=== PATIENT | male | born 1990 | race Asian ===

== ENCOUNTER 2018-08-19 23:54 | Emergency (ER) | payer OTHER ==
[2018-08-20 00:30] VITALS: BP 135/79; PULSE 84; TEMP 98.3; BMI 33.9
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
[2018-08-20] MEDS ORDERED: SODIUM CHLORIDE 0.9% 500 ML INFUS.BAG IV ONE (01:01)
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
== END 2018-08-20 06:14 | disposition home or self-care (01) ==
LOC: JER 23:54
DX: F10.120 Alcohol abuse with intoxication, uncomplicated (principal); Y08.89XA Assault by other specified means, initial encounter; Y93.89 Activity, other specified; Y92.480 Sidewalk as the place of occurrence of the external cause; Y99.8 Other external cause status; Y07.6 Multiple perpetrators of maltreatment and neglect
CPT/HCPCS: 70450-TC; 72125-TC; 99282-25

== ENCOUNTER 2019-02-21 22:30 | Emergency (ER) | payer OTHER ==
[2019-02-21 22:40] VITALS: TEMP 98.1; BMI 32.5
--- NOTE | 2019-02-21 22:52 | PDOC ---
Attending Attestation - Resident Resident Name: Luan Valdovinosmadyson - ED Attending Attestation I have performed the following: I have examined & evaluated the patient, The case was reviewed & discussed with the resident, I agree w/resident's findings & plan, Exceptions are as noted - HPI HPI: 02/21/19 22:50 this 28 yo male admits to heavy alcohol use and now states he has chest pain - Physicial Exam PE: 02/22/19 00:06 28 wnwd male who is inebriated and has tachycardia head ncat cvs tachycardia neuro intoxicated but conversant,moving all limbs and answering questions,motor strength 5/5 b/l 02/22/19 00:06 02/22/19 00:42 - Medical Decision Making 02/22/19 00:04 past surgical history :appendectomy. PCP Dr. Neyda Blanco Social history he uses tobacco and binge drinks. He admits to drinking whiskey and beer today 02/22/19 00:43 ekg tachycardai @ 113 bpm 02/22/19 01:22 cbc has no anemia or leukocytosis chemistries show slight elevation in creatinine (1.4) ,glu 125 tropinin is negative 02/22/19 01:24 02/22/19 01:24 etoh 233 02/22/19 01:56 pt needs IV fluid, repeat troponin
[2019-02-21] MEDS ORDERED: FOLIC ACID INJECTION - 1 MG, THIAMINE HCL 100 MG, MULTIVIT INJECTION ADULT 10 ML in SOD... IVPB ONE (23:07)
--- NOTE | 2019-02-21 23:10 | PDOC ---
History of Present Illness - General Chief Complaint: Alcohol intoxication Stated Complaint: CHEST PAIN Time Seen by Provider: 02/21/19 22:43 - History of Present Illness Initial Comments: 02/21/19 23:10 28 y/o M hx of HTN, asthma and alcohol use presenting to the ED intoxicated and complaining of chest pain. He started having chest pain on his right side around 9/10 a.m this morning, waxing and waning. He is unable to characterize or give me further information as this time. He had 6 shots of whiskey and 2 cans of beer and reports he was brought to the ED by a friend. Not having chest pain at the moment. Past History - Past Medical History Allergies/Adverse Reactions: Allergies Allergy/AdvReac Type Severity Reaction Status Date / Time No Known Allergies Allergy Verified 02/21/19 22:37 Home Medications: Ambulatory Orders Albuterol Sulfate Inhaler - [Ventolin HFA Inhaler -] 1 - 2 inh PO Q4H PRN #1 inhaler 12/06/15 Atorvastatin Ca [Lipitor] 40 mg PO HS 02/22/19 Fenofibrate,Micronized [Fenofibrate] 134 mg PO DAILY 02/22/19 Losartan Potassium [Cozaar] 100 mg PO DAILY 02/22/19 Asthma: Yes COPD: No - Surgical History Appendectomy: Yes Cardiac Surgery: Yes - Psycho Social/Smoking Cessation Hx Smoking Status: No Smoking History: Never smoked Have you smoked in the past 12 months: No Number of Cigarettes Smoked Daily: 0 Hx Alcohol Use: No Drug/Substance Use Hx: No *Physical Exam - Vital Signs Last Vital Signs Temp Pulse Resp BP Pulse Ox 98.1 F 113 H 18 151/98 99 02/21/19 22:37 02/21/19 22:37 02/21/19 22:37 02/21/19 22:37 02/21/19 22:37 - Physical Exam General Appearance: Yes: Nourished, Appropriately Dressed, Intoxicated HEENT: positive: Normal Voice, Other (injected conjunctiva bilaterally) Neck: positive: Trachea midline, Supple Respiratory/Chest: positive: Other (faint crackles lung bases. mildly decreased breath sounds). negative: Chest Tender, Accessory Muscle Use, Rapid RR Cardiovascular: positive: Regular Rhythm, S1, S2, Tachycardia. negative: Edema , JVD Gastrointestinal/Abdominal: positive: Normal Bowel Sounds, Soft, Protuberent. negative: Pulsatile Mass, Guarding, Tenderness Musculoskeletal: positive: Normal Inspection. negative: CVA Tenderness Extremity: positive: Normal Capillary Refill, Normal Inspection, Normal Range of Motion Integumentary: positive: Normal Color, Dry, Warm Neurologic: positive: spanner operator II-XII NML intact, Alert, Motor Strength 5/5, Other ( AO x 2. ) ED Treatment Course - LABORATORY CBC & Chemistry Diagram: 02/22/19 00:05 02/22/19 00:05 Medical Decision Making - Medical Decision Making 02/21/19 23:17 28 y/o M hx of HTN, asthma and alcohol use presenting to the ED intoxicated and complaining of chest pain. cbc, cmp, cardiac profile, cxr portable, banana bag 02/22/19 01:12 EKG: sinus tachycardia otherwise normal EKG alcohol level 233.2 02/22/19 01:34 HR currently 103 Repeat trop at 3:05 a.m trop negative Patient doing better more lucid. HR 97 on discharge 02/26/19 08:36 *DC/Admit/Observation/Transfer Diagnosis at time of Disposition: Alcohol intoxication Qualifiers: Complication of substance-induced condition: uncomplicated Qualified Code(s): F10.920 - Alcohol use, unspecified with intoxication, uncomplicated - Discharge Dispostion Disposition: HOME Condition at time of disposition: Stable Decision to Admit order: No - Referrals - Patient Instructions Printed Discharge Instructions: DI for Alcohol Abuse - Post Discharge Activity Discharge - Discharge Information Problems reviewed: Yes Clinical Impression/Diagnosis: Alcohol intoxication Qualifiers: Complication of substance-induced condition: uncomplicated Qualified Code(s): F10.920 - Alcohol use, unspecified with intoxication, uncomplicated Condition: Stable Disposition: HOME - Admission No - Follow up/Referral - Patient Discharge Instructions Patient Printed Discharge Instructions: DI for Alcohol Abuse - Post Discharge Activity
[2019-02-22 00:20] LABS: BASO % 0.8 % (0-2.0); HEMATOCRIT 44.8 % (35.4-49); HEMOGLOBIN 15.3 GM/dL (11.7-16.9); LYMPH % 41.1 % (8-40); MCH 30.3 pg (25.7-33.7); MCHC 34.3 g/dl (32.0-35.9); MEAN CELL VOLUME 88.4 fl (80-96); MEAN PLT VOLUME 9.7 fl (7.5-11.1); NEUT % 45.1 % (42.8-82.8); PLATELET COUNT 285 K/MM3 (134-434); RBC 5.06 M/mm3 (4.00-5.60); RDW 12.8 % (11.9-15.9); WHITE BLOOD COUNT 8.4 K/mm3 (4.0-10.0)
[2019-02-22 00:47] LABS: ALBUMIN 3.9 g/dl (3.4-5.0); BILIRUBIN,TOTAL 0.4 mg/dL (0.2-1); BLOOD UREA NITROGEN 9.6 mg/dL (7-18); CALCIUM 8.9 mg/dL (8.5-10.1); CREATININE 1.4 mg/dL (0.55-1.3); POTASSIUM 4.2 mmol/L (3.5-5.1); TOT PROT 7.2 g/dl (6.4-8.2)
[2019-02-22 02:57] VITALS: BP 137/91; PULSE 97
--- NOTE | 2019-02-22 04:28 | PDOC ---
*Physical Exam - Vital Signs Last Vital Signs Temp Pulse Resp BP Pulse Ox 98.1 F 97 H 23 H 137/91 98 02/21/19 22:37 02/22/19 02:45 02/22/19 02:45 02/22/19 02:45 02/22/19 02:45 ED Treatment Course - LABORATORY CBC & Chemistry Diagram: 02/22/19 00:05 02/22/19 00:05 - ADDITIONAL ORDERS Additional order review: Laboratory Results 02/22/19 02/22/19 02/22/19 03:15 00:05 00:05 Sodium 138 Potassium 4.2 Chloride 105 Carbon Dioxide 25 Anion Gap 7 L BUN 9.6 Creatinine 1.4 H Est GFR (CKD-EPI)AfAm 78.69 Est GFR (CKD-EPI)NonAf 67.89 Random Glucose 125 H Calcium 8.9 Total Bilirubin 0.4 AST 13 L ALT 33 Alkaline Phosphatase 58 Creatine Kinase 171 Creatine Kinase Index 0.5 CK-MB (CK-2) 1.0 Troponin I < 0.02 < 0.02 Total Protein 7.2 Albumin 3.9 Alcohol, Quantitative 233.2 H 02/22/19 00:05 RBC 5.06 MCV 88.4 MCHC 34.3 RDW 12.8 MPV 9.7 D Neutrophils % 45.1 Lymphocytes % 41.1 H Monocytes % 11.0 H Eosinophils % 2.0 Basophils % 0.8 Medical Decision Making - Medical Decision Making 02/22/19 04:28 repeat trop is normal; pt is no longer tachy and his blood alcohol was 233 6 hrs ago and he is sober for discharge at this time. *DC/Admit/Observation/Transfer Diagnosis at time of Disposition: Alcohol intoxication - Discharge Dispostion Disposition: HOME Condition at time of disposition: Stable - Referrals - Patient Instructions Printed Discharge Instructions: DI for Alcohol Abuse - Post Discharge Activity
--- NOTE | 2019-02-25 11:06 | EKG ---
Test Reason : Blood Pressure : / mmHG Vent. Rate : 113 BPM Atrial Rate : 113 BPM P-R Int : 132 ms QRS Dur : 080 ms QT Int : 320 ms P-R-T Axes : 033 026 032 degrees QTc Int : 438 ms SINUS TACHYCARDIA OTHERWISE NORMAL ECG NO PREVIOUS ECGS AVAILABLE Confirmed by SIMIN RAHMAN MD ([id number]) on 02/25/2019 11:05:45 AM Referred By: Confirmed By:SIMIN RAHMAN MD
== END 2019-02-22 05:11 | disposition home or self-care (01) ==
LOC: JER 22:30
PROC: 3E033GC Introduction of Other Therapeutic Substance into Peripheral Vein, Percutaneous Approach (ICD-10-PCS; principal; 2019-02-21)
DX: F10.120 Alcohol abuse with intoxication, uncomplicated (principal); Y90.7 Blood alcohol level of 200-239 mg/100 ml; I10 Essential (primary) hypertension; E78.00 Pure hypercholesterolemia, unspecified; J45.909 Unspecified asthma, uncomplicated
CPT/HCPCS: 36415; 71045-TC-FY; 80053; 80307; 82550; 82553; 84484; 85025; 93005; 93010; 96365; 96366; 99282-25; J7030

== ENCOUNTER 2019-04-07 00:41 | Emergency (ER) | payer OTHER ==
[2019-04-07 01:12] VITALS: BMI 37.2
--- NOTE | 2019-04-07 01:39 | PDOC ---
Attending Attestation - Resident Resident Name: Juan Long - ED Attending Attestation I have performed the following: I have examined & evaluated the patient, The case was reviewed & discussed with the resident, I agree w/resident's findings & plan - HPI HPI: 04/07/19 02:03 29-year-old male with alcohol intoxication complaining of body aches. No outward signs of trauma. - Physicial Exam PE: 04/07/19 02:03 agree with resident exam - Medical Decision Making 04/07/19 02:03 29-year-old male with alcohol intoxication Patient has no specific complaints, no outward signs of trauma He states he prefers to go home and follow-up with his regular physician in the morning EKG and DC home either when clinically sober or with sober ride
--- NOTE | 2019-04-07 02:18 | PDOC ---
History of Present Illness - General Chief Complaint: Alcohol intoxication Stated Complaint: INTOX Time Seen by Provider: 04/07/19 01:22 - History of Present Illness Initial Comments: 04/07/19 02:14 29 yo M PMH HTN, asthma, alcohol use, presenting with generalized aching bones. Worst in L shoulder, worsened by arm movement. Reports that it has been there for the last 3 days, however, was worse today and wanted to know why. Admits to drinking 3 shots of whiskey, but denies being drunk. Further complains of athlete's foot. Endorses chills. Denies CP, SOB, N/V, constipation/diarrhea, weakness, numbness , tingling. Past History - Past Medical History Allergies/Adverse Reactions: Allergies Allergy/AdvReac Type Severity Reaction Status Date / Time No Known Allergies Allergy Verified 04/07/19 01:04 Home Medications: Ambulatory Orders Albuterol Sulfate Inhaler - [Ventolin HFA Inhaler -] 1 - 2 inh PO Q4H PRN #1 inhaler 12/06/15 Atorvastatin Ca [Lipitor] 40 mg PO HS 02/22/19 Fenofibrate,Micronized [Fenofibrate] 134 mg PO DAILY 02/22/19 Losartan Potassium [Cozaar] 100 mg PO DAILY 02/22/19 Clotrimazole [Lotrimin 1% Solution -] 1 applic TP BID #1 bottle 04/07/19 Ibuprofen [Motrin -] 400 mg PO QID #28 tablet 04/07/19 Asthma: Yes COPD: No - Surgical History Appendectomy: Yes Cardiac Surgery: Yes - Psycho Social/Smoking Cessation Hx Smoking Status: No Smoking History: Never smoked Have you smoked in the past 12 months: No Number of Cigarettes Smoked Daily: 0 Information on smoking cessation initiated: No Hx Alcohol Use: No Drug/Substance Use Hx: No Review of Systems - Review of Systems Constitutional: Yes: Chills. No: Diaphoresis, Fever HEENTM: No: Recent change in vision, Hearing Loss, Mouth Pain, Difficulty Swallowing Respiratory: No: Cough, Shortness of Breath Cardiac (ROS): No: Chest Pain, Lightheadedness, Palpitations, Chest Tightness ABD/GI: No: Constipated, Diarrhea, Nausea, Vomiting : No: Flank Pain Musculoskeletal: Yes: Other (generalized bone pain) Neurological: No: Headache, Numbness, Tingling, Weakness, Unsteady Gait, Ataxia , Dizziness *Physical Exam - Vital Signs Last Vital Signs Temp Pulse Resp BP Pulse Ox 98.5 F 110 H 22 H 131/70 100 04/07/19 00:45 04/07/19 00:45 04/07/19 00:45 04/07/19 00:45 04/07/19 00:45 - Physical Exam Comments: 04/07/19 02:16 Gen: clinically intoxicated, smells of alcohol Neuro: AAOX4, CN II-XII intact, FTN intact, EOMI, PERRLA, 5/5 strength, SILT HEENT: atraumatic, normocephalic, dry mucous membranes Neck: trachea midline, supple CV: tachycardic, regular rhythm, no murmurs, rubs, or gallops Pulm: CTA b/l, no wheezing Abd: soft, non-distended, non-tender MSK: full ROM, intact pulses Extr: no edema, no deformities Skin: warm, dry Medical Decision Making - Medical Decision Making 04/07/19 02:17 Patient with full ROM and no deformities, no tenderness anywhere. - POC glucose - EKG - likely dc after clinically sober 04/07/19 02:54 EKG normal sinus at 106 bpm 04/07/19 04:13 CXR with no acute pathology. 04/07/19 05:09 Patient clinically sober, speaking clearly, walking without issues. CXR without acute pathology, BP in both arms equal. Pain improved with acetaminophen. Will dc home with close outpatient followup. Discharge - Discharge Information Problems reviewed: Yes Clinical Impression/Diagnosis: Alcohol intoxication - Admission No - Additional Discharge Information Prescriptions: Clotrimazole [Lotrimin 1% Solution -] 1 applic TP BID #1 bottle Ibuprofen [Motrin -] 400 mg PO QID #28 tablet - Follow up/Referral Referrals: Neyda Blanco MD [Primary Care Provider] - - Patient Discharge Instructions Patient Printed Discharge Instructions: DI for Alcohol Abuse Additional Instructions: You were seen with alcohol intoxication and generalized bony pain. Your imaging was unconcerning, and your pain improved with Tylenol. Please follow up with your primary care doctor within 1 week. Take Motrin as needed for pain. Apply the foot cream for athlete's foot. Return to the ED if you develop worsening symptoms. - Post Discharge Activity
[2019-04-07] MEDS ORDERED: ACETAMINOPHEN 325 MG TABLET (FP) PO ONE (03:15)
[2019-04-07] MEDS ORDERED: ACETAMINOPHEN 325 MG TABLET (FP) ONE (03:32)
[2019-04-07 05:46] VITALS: BP 128/86; PULSE 92; TEMP 98.3
--- NOTE | 2019-04-07 09:20 | EKG ---
Test Reason : Blood Pressure : / mmHG Vent. Rate : 106 BPM Atrial Rate : 106 BPM P-R Int : 126 ms QRS Dur : 078 ms QT Int : 312 ms P-R-T Axes : 035 025 035 degrees QTc Int : 414 ms SINUS TACHYCARDIA OTHERWISE NORMAL ECG WHEN COMPARED WITH ECG OF 21-FEB-2019 22:39, NO SIGNIFICANT CHANGE WAS FOUND Confirmed by MD Martinez Edward ([id number]) on 04/07/2019 9:20:42 AM Referred By: Confirmed By:Alejandro Martinez MD
== END 2019-04-07 05:20 | disposition home or self-care (01) ==
LOC: JER 00:41
DX: F10.120 Alcohol abuse with intoxication, uncomplicated (principal); M25.512 Pain in left shoulder; B35.3 Tinea pedis; I10 Essential (primary) hypertension; J45.909 Unspecified asthma, uncomplicated
CPT/HCPCS: 71046-TC-FY; 82962; 93005; 93010; 99284-25

== ENCOUNTER 2019-08-05 16:45 | Emergency (ER) | payer OTHER ==
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
[2019-08-05] MEDS ORDERED: SODIUM CHLORIDE 0.9% 1000 ML INFUS.BAG IV ONE (16:57)
[2019-08-05] MEDS ORDERED: FOLIC ACID 1 MG TABLET (FP) PO ONE (17:14)
[2019-08-05] MEDS ORDERED: THIAMINE HCL 200 MG/2 ML VIAL IVPB ONE (17:14)
[2019-08-05 17:19] VITALS: BP 152/98; PULSE 82; TEMP 98.2; BMI 34.2
--- NOTE | 2019-08-05 17:52 | PDOC ---
Documentation entered by Hermes Leone SCRIBE, acting as scribe for Missy Parker DO. Missy Parker DO: This documentation has been prepared by the Sulema soto Xhesika, SCRIBE, under my direction and personally reviewed by me in its entirety. I confirm that the documentation accurately reflects all work, treatment, procedures, and medical decision making performed by me. Attending Attestation - Resident Resident Name: Juan Long - ED Attending Attestation I have performed the following: I have examined & evaluated the patient, The case was reviewed & discussed with the resident, I agree w/resident's findings & plan, Exceptions are as noted - HPI HPI: 08/05/19 17:59 The patient is a 29 year old male with a significant PMH of HTN, asthma, and alcohol use who presents to the emergency department for slurred speech. Per friends at bedside, the patients last normal was 2pm. Friends called the patient on the phone at 3pm and the patient seemed altered, could not give his address and had slurred speech. Friends met with the patient and found an uneaten sandwich and a redbull in the car. Patient denies any alcohol use in the last 2 months. The patient denies chest pain, shortness of breath, headache and dizziness. Denies fever, chills, cough, nausea, vomiting, diarrhea and constipation. Allergies: NKDA - Physicial Exam PE: 08/05/19 18:00 GENERAL: Awake, alert, in no acute distress. +slurred speech. HEAD: No signs of trauma NECK: Normal ROM, supple, no lymphadenopathy, JVD, or masses LUNGS: Breath sounds equal, clear to auscultation bilaterally. No wheezes, and no crackles HEART: Regular rate and rhythm, normal S1 and S2, no murmurs, rubs or gallops ABDOMEN: Soft, nontender, normoactive bowel sounds. No guarding, no rebound. No masses EXTREMITIES: + mild asterixis. +trace pitting edema in ankles. Normal range of motion. No clubbing or cyanosis. No cords, erythema, or tenderness NEUROLOGICAL: Cranial nerves II through XII grossly intact. 5/5 strength and sensation upper and lower extremities. SKIN: Warm, Dry, normal turgor, no rashes lesions noted. - Medical Decision Making 08/05/19 17:48 I, Dr. Missy Parker, DO, attest that this document has been prepared under my direction and personally reviewed by me in its entirety. I further attest, that it accurately reflects all work, treatment, procedures and medical decision -making performed by me. a/p: 29yo male with hx of asthma, htn, alcohol abuse - no etoh x 2m with altered ms, slurred speech since 3p today -last seen normal at 2p -denies etoh -slurred speech on exam, no other focal deficits -finger stick 112 -will send labs, ekg, head ct -nihss-1 slurred speech -will monitor and reassess -will send drug screen and etoh level -brother in law states hx of MR- pt does go to therapy for MR 08/05/19 19:[address] without acute findings pt with etoh 275 discussed with the patient, states he did drink alcohol last night, but denies etoh today uds neg pt speech more clear brother coming to get the patient 08/05/19 22:22 pt brother showed up, picked up the patient and left with the IV in place resident called the patient and told him to come back, pt states he will be back in 10 min if not back in 10 min will call the police 08/05/19 22:48 pt has not returned to the Er police were notified 08/05/19 23:01 called pt again to return to the Er for IV removal Heart Score/ECG Review - ECG Intrepretation Comment:: 08/05/19 17:52 sinus at 87, nl axis, nl interval, no acute st/t wave findings
[2019-08-05 18:28] LABS: BASO % 0.7 % (0-2.0); EOS % 2.8 % (0-4.5); HEMATOCRIT 44.3 % (35.4-49); HEMOGLOBIN 15.5 GM/dL (11.7-16.9); LYMPH % 42.3 % (8-40); MCH 32.9 pg (25.7-33.7); MEAN CELL VOLUME 94.1 fl (80-96); MONO % 6.3 % (3.8-10.2); NEUT % 47.9 % (42.8-82.8); PLATELET COUNT 294 K/MM3 (134-434); RBC 4.71 M/mm3 (4.00-5.60); RDW 14.1 % (11.9-15.9); WHITE BLOOD COUNT 7.5 K/mm3 (4.0-10.0)
[2019-08-05 18:40] LABS: INR 0.96 (0.83-1.09); PROTHROMBIN TIME (PATIENT) 11.3 SEC (9.7-13.0)
[2019-08-05 18:42] LABS: ACTIVATED PTT 33.8 SECONDS (25.2-36.5)
[2019-08-05 18:56] LABS: ALBUMIN 4.5 g/dl (3.4-5.0); BILIRUBIN,TOTAL 0.3 mg/dL (0.2-1); BLOOD UREA NITROGEN 10.6 mg/dL (7-18); CALCIUM 9.4 mg/dL (8.5-10.1); CREATININE 1.2 mg/dL (0.55-1.3); POTASSIUM 3.8 mmol/L (3.5-5.1); TOT PROT 8.3 g/dl (6.4-8.2)
[2019-08-05 19:01] LABS: COCAINE, UR NEGATIVE ng/ml (CUTOFF=300); METHADONE, UR NEGATIVE ng/ml (CUTOFF=300); OPIATES, URI NEGATIVE ng/ml (CUTOFF=300); PHENCYCLIDINE,URINE NEGATIVE ng/ml (CUTOFF=25); URINE AMPHETAMINES NEGATIVE ng/ml (CUTOFF=500); URINE BARBITURATES NEGATIVE ng/ml (CUTOFF=200); URINE BENZODIAZEPINES NEGATIVE ng/ml (CUTOFF=200)
[2019-08-05] MEDS ORDERED: FOLIC ACID 1 MG TABLET (FP) ONE (19:25)
[2019-08-05] MEDS ORDERED: THIAMINE HCL 200 MG/2 ML VIAL ONE (19:25)
[2019-08-05] MEDS ORDERED: IBUPROFEN 600 MG TABLET (FP) PO ONE (20:05)
[2019-08-05] MEDS ORDERED: CYANOCOBALAMIN (VITAMIN B-12) 100 MCG TABLET PO ONE (20:18)
[2019-08-05 20:36] LABS: MAGNESIUM 2.5 mg/dL (1.8-2.4)
--- NOTE | 2019-08-06 14:04 | EKG ---
Test Reason : Blood Pressure : / mmHG Vent. Rate : 087 BPM Atrial Rate : 087 BPM P-R Int : 142 ms QRS Dur : 086 ms QT Int : 358 ms P-R-T Axes : 022 021 029 degrees QTc Int : 430 ms NORMAL SINUS RHYTHM NORMAL ECG WHEN COMPARED WITH ECG OF 07-APR-2019 02:50, NO SIGNIFICANT CHANGE WAS FOUND Confirmed by RADHA DURAN MD ([id number]) on 08/06/2019 2:04:19 PM Referred By: Confirmed By:RADHA DURAN MD
[2019-08-06] MEDS ORDERED: CYANOCOBALAMIN (VITAMIN B-12) 100 MCG TABLET PO ONE (17:15)
== END 2019-08-05 23:13 | disposition home or self-care (01) ==
LOC: JER 16:45
PROC: 3E033GC Introduction of Other Therapeutic Substance into Peripheral Vein, Percutaneous Approach (ICD-10-PCS; principal; 2019-08-05)
DX: F10.920 Alcohol use, unspecified with intoxication, uncomplicated (principal); F79 Unspecified intellectual disabilities; K76.0 Fatty (change of) liver, not elsewhere classified
CPT/HCPCS: 36415; 70450-TC; 80053; 80307; 82962; 83735; 85025; 85610; 85730; 93005; 93010; 99285-25; J7030

== ENCOUNTER 2020-01-18 22:39 | Emergency (ER) | payer OTHER ==
[2020-01-18 23:01] VITALS: BP 153/100; PULSE 106; TEMP 99.7; BMI 33.4
--- NOTE | 2020-01-18 23:08 | PDOC ---
History of Present Illness - General Chief Complaint: Blood Pressure Problem Stated Complaint: PAIN History Source: Patient, Old Records Exam Limitations: Intoxication - History of Present Illness Initial Comments: 01/18/20 23:06 Sheree Chen is a 29M with PMH HTN, asthma, alcohol use disorder, mental retardation, fatty liver disease, BIBA for intoxication and chest/back/shoulder pain. Patient has been evaluated in [facility] several times in the past for alcohol intoxication. Clinically intoxicated at this time. Today patient reports drank 2 beers and called EMS for lower back pain and right shoulder pain. Denies fall or injury, syncope/LOC. Says he slept in a weird position and now has muscle pain in his right lower back, and soreness in his right shoulder. Denies numbness or tingling, weakness, or paralysis. Denies loss of bowel/bladder continence. Denies chest pain, fever, chills, nausea, vomiting, diarrhea, BANKS, vision changes, dizziness. Complains of asthma symptoms, has not taken any asthma medications today. Has PMH HTN, HLD. Takes simvastatin, amlodipine, and losartan at night. NKDA. No PSH. Denies alcohol/drugs tobacco. Past History - Medical History Allergies/Adverse Reactions: Allergies Allergy/AdvReac Type Severity Reaction Status Date / Time No Known Allergies Allergy Verified 01/18/20 23:01 Home Medications: Ambulatory Orders Albuterol Sulfate Inhaler - [Ventolin HFA Inhaler -] 1 - 2 inh PO Q4H PRN #1 inhaler 12/06/15 Atorvastatin Ca [Lipitor] 40 mg PO HS 02/22/19 Fenofibrate,Micronized [Fenofibrate] 134 mg PO DAILY 02/22/19 Losartan Potassium [Cozaar] 100 mg PO DAILY 02/22/19 Clotrimazole [Lotrimin 1% Solution -] 1 applic TP BID #1 bottle 04/07/19 Ibuprofen [Motrin -] 400 mg PO QID #28 tablet 04/07/19 Asthma: Yes COPD: No - Surgical History Appendectomy: Yes Cardiac Surgery: Yes - Psycho-Social/Smoking History Smoking Status: No Smoking History: Current some day smoker Have you smoked in the past 12 months: Yes Number of Cigarettes Smoked Daily: 5 Information on smoking cessation initiated: No - Substance Abuse Hx (Audit-C & DAST Scrn) How often the patient has a drink containing alcohol: Monthly or less Number of drinks the patient has on a typical day: 1 or 2 How often the patient has six or more drinks on one occasion: Less than monthly Score: In Men: 4 or > Positive; In Women: 3 or > Positive: 2 Screen Result (Pos requires Nsg. Audit-10AR): Negative In the last yr the pt used illegal drug/Rx for NonMed reason: No Score: Yes response is considered Positive: 0 Screen Result (Positive result requires Nsg. DAST-10): Negative Review of Systems - Review of Systems Able to Perform ROS?: Yes Constitutional: No: Symptoms Reported HEENTM: No: Symptoms Reported Respiratory: No: Symptoms reported Cardiac (ROS): No: Symptoms Reported ABD/GI: No: Constipated, Diarrhea, Nausea, Poor Appetite, Poor Fluid Intake, Vomiting : No: Symptoms Reported Musculoskeletal: Yes: Back Pain, Joint Pain Integumentary: No: Symptoms Reported Neurological: No: Numbness, Paresthesia, Weakness, Unsteady Gait, Ataxia Endocrine: No: Symptoms Reported Hematologic/Lymphatic: No: Symptoms Reported All Other Systems: Reviewed and Negative *Physical Exam - Vital Signs Last Vital Signs Temp Pulse Resp BP Pulse Ox 99.7 F H 106 H 20 153/100 99 01/18/20 22:59 01/18/20 22:59 01/18/20 22:59 01/18/20 22:59 01/18/20 22:59 - Physical Exam General Appearance: Yes: Nourished, Appropriately Dressed, Intoxicated, Obese, Other (appears older than stated age, slurred speech, otherwise in NAD). No: Apparent Distress HEENT: positive: EOMI, JODI, Normal Voice, Symmetrical, Hearing Grossly Normal. negative: Scleral Icterus (R), Scleral Icterus (L), Pharyngeal Erythema, Tonsillar Exudate Neck: positive: Trachea midline, Normal Thyroid, Supple, Other (negative Spurling test). negative: Tender, Lymphadenopathy (R), Lymphadenopathy (L), Tender lateral, Tender midline Respiratory/Chest: positive: Lungs Clear, Normal Breath Sounds. negative: Chest Tender, Respiratory Distress, Accessory Muscle Use, Labored Respiration, Rapid RR, Crackles, Rales, Rhonchi, Stridor, Wheezing, Hyperresonant Cardiovascular: positive: Regular Rhythm, Regular Rate. negative: Murmur, Tachycardia Gastrointestinal/Abdominal: positive: Normal Bowel Sounds, Soft, Protuberent. negative: Tender, Guarding, Rebound, Hernia Musculoskeletal: positive: Normal Inspection, Other (right paravertebral muscle tenderness). negative: CVA Tenderness, CVA Tenderness (L), Decreased Range of Motion, Vertebral Tenderness Extremity: positive: Normal Capillary Refill, Normal Inspection, Normal Range of Motion, Pelvis Stable, Other (patient reports pain with abduction of R shoulder but has full ROM and is neurovascular intact. BLE neurovascular intact.). 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 negative: Sensory Deficit, Confused Medical Decision Making - Medical Decision Making 01/18/20 23:45 Patient has PMH HTN and alcohol use disorder, BIBA for lower back pain, shoulder pain, and HTN. Patient has not taken HTN medications today, no concerning symptoms of hypertensive emergency. Lower back pain is muscular to right lower back, no midline tenderness or alarm symptoms of lower back injury. R shoulder pain is rotator cuff, full ROM and strength, soreness with abduction. No wheezing on exam despite reported asthma. Getting CXR for evaluation or R shoulder and for pulmonary pathology. Getting ECG for evaluation cardiac pathology. Low suspicion of fracture to lower back or shoulder base on exam. No labs needed at this time. Will keep until clinically sober and contact family for possible pickup from ED. 01/19/20 00:08 ECG shows sinus tachycardia, HR 102, QTc 432m, no SAIMA/D or TWI. 01/19/20 01:28 CXR unremarkable. 01/19/20 01:41 Patient feeling better. Clinically less intoxicated. Stable for discharge home. Patient requesting taxi home. Has Medicaid. Setting up Medicaid transfer back home. Discharge - Discharge Information Problems reviewed: Yes Clinical Impression/Diagnosis: Alcohol intoxication Qualifiers: Complication of substance-induced condition: uncomplicated Qualified Code(s): F10.920 - Alcohol use, unspecified with intoxication, uncomplicated Lumbago Qualifiers: Chronicity: acute Back pain laterality: right Sciatica presence: without sciatica Qualified Code(s): M54.5 - Low back pain Condition: Fair - Follow up/Referral Referrals: Neyda Blanco MD [Primary Care Provider] - - Patient Discharge Instructions Patient Printed Discharge Instructions: DI for High Blood Pressure Additional Instructions: Today you were evaluated for alcohol intoxication and back pain. Your back and shoulder pain is mild. We have examined you and do not think you have any broken bones. At home, refrain from drinking alcohol and take your medicines as instructed by your doctor. Take Tylenol or Motrin as instructed on the bottle for pain. At home, if you experience worsening pain, inability to walk, chest pain, loss of control over your bladder, numbness or tingling, or any other new or concerning symptoms, please return to the emergency room. - Post Discharge Activity
[2020-01-18] MEDS ORDERED: ACETAMINOPHEN 325 MG TABLET (FP) PO ONE (23:33)
--- NOTE | 2020-01-19 01:15 | PDOC ---
Documentation entered by Hermes Leone SCRIBE, acting as scribe for Sergei Nolen DO. Sergei Nolen DO: This documentation has been prepared by the Sulema soto Xhesika, SCRIBE, under my direction and personally reviewed by me in its entirety. I confirm that the documentation accurately reflects all work, treatment, procedures, and medical decision making performed by me. Attending Attestation - Resident Resident Name: BlossomSandro - ED Attending Attestation I have performed the following: I have examined & evaluated the patient, The case was reviewed & discussed with the resident, I agree w/resident's findings & plan - HPI HPI: 01/18/20 23:31 see resident HPI - Physicial Exam PE: 01/18/20 23:31 Agree with resident exam - Medical Decision Making 01/29/20 17:33 Agree w res Discharge - Discharge Information Problems reviewed: Yes Clinical Impression/Diagnosis: Alcohol intoxication Qualifiers: Complication of substance-induced condition: uncomplicated Qualified Code(s): F10.920 - Alcohol use, unspecified with intoxication, uncomplicated Lumbago Qualifiers: Chronicity: acute Back pain laterality: right Sciatica presence: without sciatica Qualified Code(s): M54.5 - Low back pain Condition: Fair Disposition: HOME - Follow up/Referral Referrals: Neyda Blanco MD [Primary Care Provider] - - Patient Discharge Instructions Patient Printed Discharge Instructions: DI for High Blood Pressure Additional Instructions: Today you were evaluated for alcohol intoxication and back pain. Your back and shoulder pain is mild. We have examined you and do not think you have any broken bones. At home, refrain from drinking alcohol and take your medicines as instructed by your doctor. Take Tylenol or Motrin as instructed on the bottle for pain. At home, if you experience worsening pain, inability to walk, chest pain, loss of control over your bladder, numbness or tingling, or any other new or concerning symptoms, please return to the emergency room. - Post Discharge Activity
--- NOTE | 2020-01-19 09:08 | EKG ---
Test Reason : Blood Pressure : / mmHG Vent. Rate : 102 BPM Atrial Rate : 102 BPM P-R Int : 134 ms QRS Dur : 080 ms QT Int : 332 ms P-R-T Axes : 020 004 013 degrees QTc Int : 432 ms SINUS TACHYCARDIA POSSIBLE INFERIOR INFARCT , AGE UNDETERMINED ABNORMAL ECG WHEN COMPARED WITH ECG OF 05-AUG-2019 16:59, NO SIGNIFICANT CHANGE WAS FOUND Confirmed by Daryl Puckett MD ([id number]) on 01/19/2020 9:08:03 AM Referred By: Confirmed By:Daryl Puckett MD
== END 2020-01-19 02:00 | disposition home or self-care (01) ==
LOC: JER 22:39
DX: M54.5 Low back pain (principal); F10.920 Alcohol use, unspecified with intoxication, uncomplicated
CPT/HCPCS: 71046-TC-FY; 93005; 93010; 99284-25

== ENCOUNTER 2022-06-27 10:05 | Day surgery (SDC) | payer BC ==
[2022-06-22 10:43] VITALS: BMI 38.5
[2022-06-27] MEDS ORDERED: PROPOFOL 40 ML ONE (11:05)
[2022-06-27] MEDS ORDERED: BUPIVACAINE HCL/PF 0.25% (2.5MG/ML) 10 ML VIAL ONE (12:32)
[2022-06-27] MEDS ORDERED: ROPIVACAINE HCL 0.5% 30ML VIAL ONE (12:32)
[2022-06-27] MEDS ORDERED: BUPIVACAINE HCL/PF 2.5 MG/ML - 30 ML VIAL IJ ONE (12:33)
[2022-06-27] MEDS ORDERED: MIDAZOLAM HCL 2 MG/2 ML SINGLE DOSE VIAL ONE (12:47)
[2022-06-27] MEDS ORDERED: DEXAMETHASONE SOD PHOSPHATE 4 MG/1 ML VIAL ONE (13:14)
[2022-06-27] MEDS ORDERED: KETOROLAC TROMETHAMINE 30 MG/1 ML VIAL ONE (13:14)
[2022-06-27] MEDS ORDERED: ONDANSETRON 4 MG/2 ML VIAL ONE (13:14)
[2022-06-27] MEDS ORDERED: ONDANSETRON 4 MG/2 ML VIAL IVPUSH PRN (14:17)
[2022-06-27] MEDS ORDERED: oxyCODONE HCL 5 MG TABLET PO PRN (14:17)
[2022-06-27] MEDS ORDERED: PROMETHAZINE HCL 25 MG/1 ML VIAL IVPUSH PRN (14:17)
[2022-06-27] MEDS ORDERED: LACTATED RINGERS SOLUTION 1,000 ML IV SCH (14:30)
[2022-06-27 15:23] VITALS: RESP 19; TEMP 97.8
[2022-06-27 15:28] VITALS: BP 102/74; PULSE 90
== END 2022-06-27 15:35 | disposition home or self-care (01) ==
LOC: FASU 10:05
PROVIDERS: ATTEND Orthopaedic Surgery Hand Surgery
PROC: 0RBP4ZZ Excision of Left Wrist Joint, Percutaneous Endoscopic Approach (ICD-10-PCS; 2022-06-27)
PROC: 0RBP4ZZ Excision of Left Wrist Joint, Percutaneous Endoscopic Approach (ICD-10-PCS; principal; 2022-06-27 13:20)
DX: M24.832 Other specific joint derangements of left wrist, not elsewhere classified (principal); M67.432 Ganglion, left wrist
CPT/HCPCS: 94760

== ENCOUNTER 2022-10-20 12:14 | Emergency (ER) | payer BC ==
[2022-10-20 12:30] VITALS: RESP 18; TEMP 98.6; BMI 37.5
[2022-10-20 13:27] VITALS: BP 128/89; PULSE 81
== END 2022-10-20 13:34 | disposition home or self-care (01) ==
LOC: FER 12:14
DX: H92.01 Otalgia, right ear (principal); J30.2 Other seasonal allergic rhinitis; H66.91 Otitis media, unspecified, right ear; H61.21 Impacted cerumen, right ear
CPT/HCPCS: 87070; 99283-25

== ENCOUNTER 2022-12-26 06:26 | Day surgery (SDC) | payer BC ==
[2022-12-20 12:18] VITALS: BMI 37.5
[2022-12-26] MEDS ORDERED: LIDOCAINE HCL 2% (20ML MULTI-DOSE VIAL) ONE (07:13)
[2022-12-26] MEDS ORDERED: PROPOFOL 20 ML ONE ×2 (07:55→08:34)
[2022-12-26] MEDS ORDERED: MIDAZOLAM HCL 2 MG/2 ML SINGLE DOSE VIAL ONE (07:55)
[2022-12-26] MEDS ORDERED: KETOROLAC TROMETHAMINE 30 MG/1 ML VIAL ONE (08:35)
[2022-12-26] MEDS ORDERED: ONDANSETRON 4 MG/2 ML VIAL ONE (08:35)
[2022-12-26] MEDS ORDERED: DEXAMETHASONE SOD PHOSPHATE 4 MG/1 ML VIAL ONE (08:35)
[2022-12-26] MEDS ORDERED: BUPIVACAINE HCL/PF 0.25% (2.5MG/ML) 10 ML VIAL ONE (08:45)
[2022-12-26] MEDS ORDERED: BUPIVACAINE HCL/PF 0.25% (2.5MG/ML) 10 ML VIAL IJ ONE (08:46)
[2022-12-26 09:47] VITALS: TEMP 97
[2022-12-26 10:09] VITALS: BP 130/82; PULSE 70; RESP 17
== END 2022-12-26 10:00 | disposition home or self-care (01) ==
LOC: FASU 06:26
PROVIDERS: ATTEND Orthopaedic Surgery Hand Surgery
PROC: 0RBP0ZZ Excision of Left Wrist Joint, Open Approach (ICD-10-PCS; principal; 2022-12-26 08:16)
DX: R22.32 Localized swelling, mass and lump, left upper limb (principal); M67.432 Ganglion, left wrist
CPT/HCPCS: 94760